=== PATIENT | male | born 1975 | race Caucasian/White ===

== ENCOUNTER 2019-07-09 04:23 | Emergency (ER) | payer MEDICARE, OTHER, MEDICAID ==
[~2019-07-09] VITALS: Ht 180.3 cm; Wt 82.0 kg
[2019-07-09 04:26] VITALS: BP 132/80
== END 2019-07-09 05:21 | disposition left against medical advice (07) ==
LOC: ER 04:42
DX: F41.9 Anxiety disorder, unspecified (principal); F19.10 Other psychoactive substance abuse, uncomplicated; F17.200 Nicotine dependence, unspecified, uncomplicated
CPT/HCPCS: 99284

== ENCOUNTER 2019-07-09 05:08 | Emergency (ER) | payer MEDICARE, OTHER, MEDICAID | END 2019-07-09 06:18 | disposition left against medical advice (07) | LOC: ER 05:08 | DX: R68.89 Other general symptoms and signs (principal); Z53.21 Procedure and treatment not carried out due to patient leaving prior to being seen by health care provider ==

== ENCOUNTER 2019-07-13 05:52 | Emergency (ER) | payer MEDICARE, OTHER, MEDICAID ==
[~2019-07-13] VITALS: Ht 185.4 cm; Wt 110.0 kg
[2019-07-13 06:15] VITALS: BP 128/90
[2019-07-13] MEDS ORDERED: MORPHINE SULFATE 4 MG/ML CPJ (NOT FOR IM USE) IV STA (06:16)
[2019-07-13] MEDS ORDERED: ONDANSETRON HCL 4MG/2ML INJ IV STA (06:16)
[2019-07-13] MEDS ORDERED: TETANUS, DIPHTHERIA, PERTUSSIS VAC/PF 0.5ML (>7YR OLD) IM ONE (06:30)
[2019-07-13 06:47] LABS: BASOPHILS % 0.6 % (0.0-2.0); EOSINOPHILS % 0.6 % (0.0-5.0); HEMATOCRIT. 38.2 % (42.0-52.0); HEMOGLOBIN. 13.4 g/dL (14.0-18.0); LYMPHOCYTES % 11.7 % (20.0-50.0); MEAN CORPUSCULAR HEMOGLOBIN 32.5 pg (28.0-32.0); MEAN CORPUSCULAR VOLUME 92.5 fL (80.0-94.0); MONOCYTES % 10.1 % (2.0-8.0); PLATELET 211 x1000/uL (130-400); RED BLOOD CELL COUNT 4.13 mill/uL (4.7-6.1); RED CELL DISTRIBUTION WIDTH 11.6 % (11.6-14.6)
[2019-07-13 06:52] LABS: CHLORIDE 108 mEq/L (98-107)
[2019-07-13 06:54] LABS: INR 0.9; PROTHROMBIN TIME 9.4 sec (9.6-11.0)
== END 2019-07-13 06:45 | disposition left against medical advice (07) ==
LOC: ER 06:11
DX: S11.91XA Laceration without foreign body of unspecified part of neck, initial encounter (principal); F20.9 Schizophrenia, unspecified; F31.9 Bipolar disorder, unspecified; Y08.89XA Assault by other specified means, initial encounter; Y93.89 Activity, other specified; Y92.89 Other specified places as the place of occurrence of the external cause; Y99.8 Other external cause status
CPT/HCPCS: 36415; 86850; 86900; 90715; 99283; J2270; J2405